=== PATIENT | male | born 1950 | race Caucasian/White ===

== ENCOUNTER → 2023-05-24 09:07 | Day surgery (SDC) | payer MEDICARE, SELFPAY | LOC: CATH 09:07 | PROVIDERS: ATTENDING PHYSICIAN Internal Medicine; FAMILY PHYSICIAN Family Medicine | DX: I48.0 Paroxysmal atrial fibrillation (principal); Z53.09 Procedure and treatment not carried out because of other contraindication; I44.0 Atrioventricular block, first degree; I10 Essential (primary) hypertension; E78.5 Hyperlipidemia, unspecified; R73.03 Prediabetes | CPT/HCPCS: 93005 ==

== ENCOUNTER 2023-06-26 08:25 | Outpatient (RCR) | payer MEDICARE, SELFPAY | END 2023-06-26 23:59 | disposition home or self-care (01) | LOC: RPT 08:25 | PROVIDERS: ATTENDING PHYSICIAN Internal Medicine; FAMILY PHYSICIAN Family Medicine | DX: I89.0 Lymphedema, not elsewhere classified (principal); Z73.6 Limitation of activities due to disability | CPT/HCPCS: 97163; 97535 ==

== ENCOUNTER 2023-07-25 15:15 | Outpatient (RCR) | payer MEDICARE, SELFPAY | END 2023-07-25 23:59 | disposition home or self-care (01) | LOC: RPT 15:15 | PROVIDERS: ATTENDING PHYSICIAN Internal Medicine; FAMILY PHYSICIAN Family Medicine | DX: I89.0 Lymphedema, not elsewhere classified (principal); Z73.6 Limitation of activities due to disability | CPT/HCPCS: 97140; 97535 ==

== ENCOUNTER 2023-08-08 10:57 | Outpatient (RCR) | payer MEDICARE, SELFPAY | END 2023-08-08 14:40 | disposition home or self-care (01) | LOC: RPT 10:57 | PROVIDERS: ATTENDING PHYSICIAN Internal Medicine; FAMILY PHYSICIAN Family Medicine | DX: I89.0 Lymphedema, not elsewhere classified (principal); Z73.6 Limitation of activities due to disability | CPT/HCPCS: 97140; 97535 ==

== ENCOUNTER → 2024-12-09 10:48 | Outpatient (REF) | payer MEDICARE, SELFPAY ==
[2024-12-09 12:03] LABS: Hematocrit 44.7 % (39.0-52.0); Hemoglobin 16.0 g/dL (13.0-18.0); Mean Corp Hgb Conc. 35.8 g/dL (33.0-37.0); Mean Corpuscular Volume 90.3 fL (80.0-94.0); Nucleated Red Blood Cells % 0 % (-); Platelet Count 166 10^3/uL (130-400); Red Cell Dist. Width 12.6 % (11.5-14.5)
[2024-12-09 12:46] LABS: Glycohemoglobin (HgbA1c) 5.6 % (4.0-5.6)
[2024-12-09 15:27] LABS: HDL Cholesterol 35 mg/dl; LDL Cholesterol, Calculated 73 mg/dl; Very Low Density Lipoprotein 16 mg/dl (0-30)
[2024-12-09 17:50] LABS: PSA, Total - Screen 0.54 ng/ml (0.0-4.0)
== END ==
LOC: REG 10:48
PROVIDERS: ATTENDING PHYSICIAN Family Medicine; FAMILY PHYSICIAN Family Medicine; OTHER PHYSICIAN Internal Medicine
DX: I48.0 Paroxysmal atrial fibrillation (principal); I10 Essential (primary) hypertension; E78.5 Hyperlipidemia, unspecified; Z12.5 Encounter for screening for malignant neoplasm of prostate; R73.03 Prediabetes
CPT/HCPCS: 36415; 80061; 83036; 85025; G0103